=== PATIENT | male | born 1985 | race Caucasian/White ===

== ENCOUNTER → 2022-04-25 10:03 | Outpatient (BNVA) | payer OTHER, SELFPAY | PROVIDERS: Family Provider Nurse Practitioner Family; PCP Registered Nurse; Visit Provider Family Medicine | DX: E66.01 Morbid (severe) obesity due to excess calories (principal); R53.83 Other fatigue; R06.83 Snoring; R03.0 Elevated blood-pressure reading, without diagnosis of hypertension | CPT/HCPCS: 80053; 80061; 83036; 84403; 84443; 85025 ==